=== PATIENT | female | born 1985 | race Caucasian/White ===

== ENCOUNTER 2020-12-09 19:49 | Observation (INO) | payer MEDICAID ==
[~2020-12-09] VITALS: Ht 165.1 cm; Wt 96.2 kg
[2020-12-09 20:53] LABS: BASOPHILS # (AUTO) 0.1 K/uL (0.0-0.2); BASOPHILS % (AUTO) 0.6 % (0.0-2.0); EOSINOPHILS # (AUTO) 0.1 K/uL (0.0-0.4); HEMATOCRIT 33.9 % (36-48); HEMOGLOBIN 11.3 g/dL (12.0-16.0); LYMPHOCYTES # (AUTO) 1.9 K/uL (1.0-5.5); LYMPHOCYTES % (AUTO) 16.9 % (20.5-51.5); MEAN CORPUSCULAR HEMOGLOBIN 30 pg (27-31); MEAN CORPUSCULAR HGB CONC 33 % (32-36); MEAN CORPUSCULAR VOLUME 90 fL (79.0-98.0); MONOCYTES # (AUTO) 0.7 K/uL (0.0-1.0); MONOCYTES % (AUTO) 6.4 % (1.7-9.3); NEUTROPHILS # (AUTO) 8.6 K/uL (1.8-7.7); NEUTROPHILS % (AUTO) 75.1 % (40.0-70.0); PLATELET COUNT (AUTO) 183 K/uL (130-430); RED BLOOD CELL COUNT(AUTO) 3.77 MIL/uL (4.2-6.2); RED CELL DISTRIBUTION WIDTH 14.4 % (9.0-15.0); WHITE BLOOD COUNT (AUTO) 11.4 K/uL (4.8-10.8)
[2020-12-09 20:57] LABS: BILIRUBIN,URINE NEGATIVE (NEGATIVE); COLOR,URINE YELLOW (YELLOW); GLUCOSE,URINE NEGATIVE (NEGATIVE); KETONES,URINE NEGATIVE (NEGATIVE); LEUKOCYTE ESTERASE ,URINE 3+ (NEGATIVE); NITRITE, URINE NEGATIVE (NEGATIVE); PROTEIN URINE NEGATIVE (NEGATIVE)
[2020-12-09 21:11] LABS: BLOOD, URINE TRACE (NEGATIVE); CLARITY/URINE HAZY (CLEAR)
[2020-12-09 21:55] LABS: BACTERIA,URINE FEW /HPF (None Seen); RBC,URINE 0-3 /HPF (0-3)
[2020-12-09 21:56] LABS: MUCUS,URINE None Seen /LPF (None Seen)
== END 2020-12-09 23:46 | disposition home or self-care (01) ==
LOC: EDBD 19:49 → SPU 19:49
PROVIDERS: ADMIT Obstetrics & Gynecology; ATTEND Obstetrics & Gynecology
DX: O26.893 Other specified pregnancy related conditions, third trimester (principal); R10.9 Unspecified abdominal pain; Z3A.31 31 weeks gestation of pregnancy
CPT/HCPCS: 36415; 76705; 81000; 85025; 87086; G0378; 76857

== ENCOUNTER 2021-02-09 12:31 | Inpatient (IN) | payer MEDICAID, SELFPAY ==
[~2021-02-09] VITALS: Ht 170.2 cm; Wt 99.8 kg
[2021-02-09] MEDS ORDERED: NALBUPHINE HCL 10 MG/ML AMP IVP PRN (13:45)
[2021-02-09] MEDS ORDERED: LR 1,000 ML IV SCH (13:45)
[2021-02-09] MEDS ORDERED: TERBUTALINE SULFATE 1 MG/ML VIAL SUBCUT ONE (13:45)
[2021-02-09] MEDS ORDERED: DINOPROSTONE 10 MG SUPP VG ONE (13:45)
[2021-02-09] MEDS ORDERED: OXYTOCIN/0.9 % SODIUM CHLORIDE 1,000 ML IV SCH (13:45)
[2021-02-09 14:08] LABS: BASOPHILS # (AUTO) 0.1 K/uL (0.0-0.2); BASOPHILS % (AUTO) 0.6 % (0.0-2.0); EOSINOPHILS # (AUTO) 0.1 K/uL (0.0-0.4); EOSINOPHILS % (AUTO) 1.1 % (0.0-4.0); HEMATOCRIT 34.1 % (36-48); HEMOGLOBIN 11.6 g/dL (12.0-16.0); LYMPHOCYTES # (AUTO) 1.8 K/uL (1.0-5.5); LYMPHOCYTES % (AUTO) 16.2 % (20.5-51.5); MEAN CORPUSCULAR HEMOGLOBIN 30 pg (27-31); MEAN CORPUSCULAR HGB CONC 34 % (32-36); MEAN CORPUSCULAR VOLUME 88 fL (79.0-98.0); MONOCYTES # (AUTO) 0.7 K/uL (0.0-1.0); MONOCYTES % (AUTO) 6.3 % (1.7-9.3); NEUTROPHILS # (AUTO) 8.3 K/uL (1.8-7.7); NEUTROPHILS % (AUTO) 75.8 % (40.0-70.0); PLATELET COUNT (AUTO) 180 K/uL (130-430); RED BLOOD CELL COUNT(AUTO) 3.86 MIL/uL (4.2-6.2); RED CELL DISTRIBUTION WIDTH 14.7 % (9.0-15.0); WHITE BLOOD COUNT (AUTO) 10.9 K/uL (4.8-10.8)
[2021-02-09 15:29] VITALS: BP_SYST 134
[2021-02-09] MEDS ORDERED: fentaNYL CITRATE/PF 100 MCG/2 ML AMP ONE (21:29)
[2021-02-09] MEDS ORDERED: ROPIVACAINE HCL/PF 0.2% 200 ML ONE (21:29)
[2021-02-09] MEDS ORDERED: LR 500 ML IV ONE (22:00)
[2021-02-09] MEDS ORDERED: ePHEDrine sulfate 50 MG/ML VIAL IVP PRN (22:00)
[2021-02-09] MEDS ORDERED: FENT2mCg/mL-ROPIVA0.2%/NS EPID 200 ML EP SCH (22:00)
[2021-02-10] MEDS ORDERED: HYDROcodone/ACETAMIN 5-325 MG TAB (NORCO/ VICODIN) PO PRN (01:45)
[2021-02-10] MEDS ORDERED: OXYCODONE/ACETAMINOPHEN 5-325 TABLET PO PRN (01:45)
[2021-02-10] MEDS ORDERED: WITCH HAZEL LEAF 1 MED.PAD MED.PAD TP PRN (03:30)
[2021-02-10] MEDS ORDERED: ANUSOL 1 EA SUPP.RECT (PREPARATION H) RC PRN (03:30)
[2021-02-10] MEDS ORDERED: DIPH-TET-PERTUS Vaccine 0.5 ML VIAL (ADACEL) I.M. PRN (03:30)
[2021-02-10] MEDS ORDERED: HYDROCORTISONE 0.5% CREAM 28.4 GM CREAM.GM. TP PRN (03:30)
[2021-02-10] MEDS ORDERED: SENNOSIDES/DOCUSATE SODIUM 1 TAB TABLET(SENOKOT-S) PO PRN (03:30)
[2021-02-10] MEDS ORDERED: DOCUSATE SODIUM 100 MG CAPSULE PO PRN (03:30)
[2021-02-10] MEDS ORDERED: OXYTOCIN/0.9 % SODIUM CHLORIDE 1,000 ML IV ONE (03:30)
[2021-02-10] MEDS ORDERED: RHO(D) IMMUNE GLOBULIN/MALTOSE 1500 UNITS/1.3 ML (WINHRO) IM PRN (03:30)
[2021-02-10] MEDS ORDERED: MEASLES,MUMPS&RUBELLA VACC/PF 12500 UNIT/0.5 ML VIAL SUBQ PRN (03:30)
[2021-02-10] MEDS ORDERED: LANOLIN 7 GM OINT. TP PRN (03:30)
[2021-02-10] MEDS ORDERED: DERMOPLAST SPRAY TP PRN (03:30)
[2021-02-10] MEDS: IBUPROFEN 600 MG TABLET PO SCH ×2 (12:25→17:56)
[2021-02-11] MEDS: IBUPROFEN 600 MG TABLET PO SCH ×3 (00:12→12:00)
[2021-02-11 07:02] LABS: HEMATOCRIT 32.4 % (36-48); HEMOGLOBIN 10.8 g/dL (12.0-16.0)
[2021-02-17] MEDS ORDERED: PROXL60 PO ×2 (16:10→16:15)
[2021-02-17] MEDS ORDERED: IBUP-1971 PO ×2 (16:11→16:12)
== END 2021-02-11 16:55 | disposition home or self-care (01) | DRG 560 ==
LOC: SPU 12:31 → SMU 02-11 06:45 → SPU 02-11 06:50
PROVIDERS: ADMIT Obstetrics & Gynecology; ATTEND Obstetrics & Gynecology
PROC: 10E0XZZ Delivery of Products of Conception, External Approach (ICD-10-PCS; principal; 2021-02-10)
PROC: 3E0R3BZ Introduction of Anesthetic Agent into Spinal Canal, Percutaneous Approach (ICD-10-PCS; 2021-02-10)
PROC: 00HU33Z Insertion of Infusion Device into Spinal Canal, Percutaneous Approach (ICD-10-PCS; 2021-02-10)
DX: O69.2XX0 Labor and delivery complicated by other cord entanglement, with compression, not applicable or unspecified (principal); Z20.822 Contact with and (suspected) exposure to COVID-19; Z37.0 Single live birth; Z3A.40 40 weeks gestation of pregnancy
CPT/HCPCS: 36415; 81002; 85018; 85025; 86592; 86886; 86900; 86901; 94760; J2590; J3010; J7120